=== PATIENT | female | born 2000 | race African-American/Black ===

== ENCOUNTER 2024-04-27 10:13 | Emergency (ER) | payer OTHER, MEDICAID ==
[~2024-04-27] VITALS: Ht 142.2 cm; Wt 47.6 kg
[2024-04-27 10:26] VITALS: TEMP 98
[2024-04-27] MEDS ORDERED: GABA100C PO (10:54)
[2024-04-27] MEDS ORDERED: LORA-259 PO (10:54)
[2024-04-27] MEDS ORDERED: LORAZEPAM 1 MG TABLET PO ONE (11:00)
[2024-04-27] MEDS ORDERED: GABAPENTIN 100 MG CAPSULE PO ONE (11:00)
[2024-04-27 11:11] VITALS: BP 114/85; O2SAT 96
== END 2024-04-27 11:10 | disposition home or self-care (01) ==
LOC: ER 11:08
DX: F41.9 Anxiety disorder, unspecified (principal); E11.40 Type 2 diabetes mellitus with diabetic neuropathy, unspecified; I10 Essential (primary) hypertension; F32.A Depression, unspecified; Z79.4 Long term (current) use of insulin